=== PATIENT | male | born 1985 | race Two or more races ===

== ENCOUNTER 2021-03-18 02:13 | Emergency (ER) | payer OTHER ==
[~2021-03-18] VITALS: Ht 175.3 cm; Wt 86.4 kg
[2021-03-18] MEDS ORDERED: RISP1TAB48 PO (02:27)
[2021-03-18 02:32] LABS: COVID AG,FIA SOURCE NASOPHARYNGEAL
[2021-03-18] MEDS ORDERED: LORazepam 2 MG TABLET PO ONE (02:45)
[2021-03-18 02:57] LABS: BASOPHILS % (AUTO) 0.7 % (0.0-2.0); EOSINOPHILS % (AUTO) 3.9 % (1.0-6.0); HEMATOCRIT 43.2 % (41-53); HEMOGLOBIN 14.8 g/dL (13.5-17.5); LYMPHOCYTES # (AUTO) 2.2 K/uL (1.0-4.8); LYMPHOCYTES % (AUTO) 26.3 % (22.0-44.0); MEAN CORPUSCULAR HEMOGLOBIN 30.4 pg (26.0-34.0); MEAN CORPUSCULAR HGB CONC 34.4 G/dL (31.0-37.0); MEAN CORPUSCULAR VOLUME 89 fL (80-100); MONOCYTES # (AUTO) 0.8 K/uL (0.1-1.0); MONOCYTES % (AUTO) 9.3 % (2.0-9.0); NEUTROPHILS % (AUTO) 59.8 % (40.0-70.0); PLATELET COUNT (AUTO) 260 K/uL (150-450); RED BLOOD CELL COUNT(AUTO) 4.88 MIL/uL (4.50-5.90); RED CELL DISTRIBUTION WIDTH 12.8 % (11.5-14.5)
[2021-03-18 03:04] LABS: AMPHET/METH SCREEN,URINE NEGATIVE (NEGATIVE); BARBITURATE SCREEN, URINE NEGATIVE (NEGATIVE); BENZODIAZEPINES SCREEN,URINE POSITIVE (NEGATIVE); CANNABINOID SCREEN,URINE NEGATIVE (NEGATIVE); COCAINE SCREEN,URINE NEGATIVE (NEGATIVE); METHADONE SCREEN, URINE NEGATIVE (NEGATIVE); OPIATE SCREEN,URINE NEGATIVE (NEGATIVE); PHENCYCLIDINE SCREEN,URINE NEGATIVE (NEGATIVE)
[2021-03-18 03:06] LABS: ANION GAP 6 mmol/L (8-16); CALCIUM, TOTAL 8.8 mg/dL (8.8-10.5); CARBON DIOXIDE 32 mmol/L (22-29); CHLORIDE 104 mmol/L (98-107); CREATININE 0.97 mg/dL (0.60-1.30); GLOMERULAR FILTR. RATE CALC > 60 mL/min (>60); GLUCOSE,RANDOM 96 mg/dL (70-110); POTASSIUM 3.6 mmol/L (3.5-5.1); SODIUM SERUM 142 mmol/L (136-145); UREA NITROGEN, BLOOD 13 mg/dL (7-18)
[2021-03-18 03:31] LABS: ALANINE AMINOTRANSFERASE 21 U/L (12-78); ALBUMIN 3.7 g/dL (3.4-5.0); ALKALINE PHOSPHATASE 83 U/L (46-116); ASPARTATE AMINOTRANSFERASE 20 U/L (15-37); BILIRUBIN,TOTAL 0.4 mg/dL (0.1-1.0); CREATINE KINASE, TOTAL ONLY 450 U/L (39-308)
[2021-03-18 03:52] VITALS: BP 140/85
== END 2021-03-18 03:50 | disposition home or self-care (01) ==
LOC: EMS 02:15 → EDBD 02:15 → EMS 03:50
DX: F41.9 Anxiety disorder, unspecified (principal); F19.10 Other psychoactive substance abuse, uncomplicated; G47.00 Insomnia, unspecified; Z20.822 Contact with and (suspected) exposure to COVID-19; Z79.899 Other long term (current) drug therapy
CPT/HCPCS: 36415; 71045; 80053; 80307; 82550; 83880; 84484; 85025; 87426; 93005; 99285; G0480

== ENCOUNTER 2021-04-11 20:29 | Emergency (ER) | payer OTHER ==
[~2021-04-11] VITALS: Ht 175.3 cm; Wt 73.0 kg
[~2021-04-11 20:29] MED LIST: RISP1TAB48 PO
[2021-04-11] MEDS ORDERED: OLAN10TA74 PO (20:42)
[2021-04-11] MEDS ORDERED: OLANZapine 5 MG TABLET PO ONE (22:15)
[2021-04-11 22:45] VITALS: BP 124/71
== END 2021-04-11 22:49 | disposition home or self-care (01) ==
LOC: EMS 20:39
DX: F41.9 Anxiety disorder, unspecified (principal); G47.00 Insomnia, unspecified; F31.9 Bipolar disorder, unspecified; F20.9 Schizophrenia, unspecified; F17.210 Nicotine dependence, cigarettes, uncomplicated; F12.90 Cannabis use, unspecified, uncomplicated; F19.90 Other psychoactive substance use, unspecified, uncomplicated
CPT/HCPCS: 99283

== ENCOUNTER 2021-09-26 11:46 | Emergency (ER) | payer OTHER ==
[~2021-09-26] VITALS: Ht 180.3 cm; Wt 75.0 kg
[~2021-09-26 11:46] MED LIST changes: +OLAN10TA74 PO
[2021-09-26 15:05] VITALS: BP 100/67
== END 2021-09-26 15:07 | disposition home or self-care (01) ==
LOC: EMS 11:49
DX: S92.344A Nondisplaced fracture of fourth metatarsal bone, right foot, initial encounter for closed fracture (principal); L03.031 Cellulitis of right toe; F31.9 Bipolar disorder, unspecified; F41.9 Anxiety disorder, unspecified; F20.9 Schizophrenia, unspecified; F12.90 Cannabis use, unspecified, uncomplicated; F15.90 Other stimulant use, unspecified, uncomplicated; F17.210 Nicotine dependence, cigarettes, uncomplicated; Z79.899 Other long term (current) drug therapy; V03.90XA Pedestrian on foot injured in collision with car, pick-up truck or van, unspecified whether traffic or nontraffic accident, initial encounter; Y93.89 Activity, other specified; Y92.89 Other specified places as the place of occurrence of the external cause; Y99.8 Other external cause status
CPT/HCPCS: 99284; 73590-TC; 73610-TC; 73630-TC; Z7502